=== PATIENT | male | born 1985 | race Caucasian/White ===

== ENCOUNTER 2019-12-03 22:50 | Emergency (ER) | payer SELFPAY ==
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
--- NOTE | 2019-12-03 22:53 | XR_ITS ---
WS: [id number] CHEST XRAY TECHNIQUE: Portable chest. CLINICAL INFORMATION: cough COMPARISON: None. FINDINGS: Heart: Normal cardiac silhouette. Lungs: No acute pulmonary infiltrates. No focal pneumonia. No pleural fluid. Bones: Right healed mid clavicular fracture with callus formation. XR/XR chest 1V portable [id number] IMPRESSION: 1. No acute pulmonary infiltrates. 2. Healed right midclavicular fracture with callus formation.
[2019-12-03 23:00] VITALS: BP 162/111; PULSE 71; RESP 18; TEMP 36.9; O2SAT 100; BMI 20.9
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
[2019-12-03 23:17] LABS: Basophils # 0.1 10^3/uL (0.0-0.1); Basophils % 0.4 %; Eosinophils # 0.2 10^3/uL (0.0-0.8); Eosinophils % 1.5 %; Hematocrit 39.5 % (42.0-52.0); Hemoglobin 12.9 g/dL (11.7-16.6); Lymphocytes # 2.2 10^3/uL (0.8-4.8); Mean Corpuscular HGB Conc 32.7 g/dL (30.0-36.0); Mean Corpuscular Hemoglobin 32.1 pg (28.0-34.0); Mean Corpuscular Volume 98.3 fL (80-94); Mean Platelet Volume 8.9 fL (7.4-10.4); Monocytes # 0.7 10^3/uL (0.2-0.9); Monocytes % 4.9 %; Neutrophils # 10.4 10^3/uL (1.8-7.7); Neutrophils % 76.4 %; Nucleated Red Blood Cells % 0 %; Platelet Count 263 10^3/cmm (130-400); Red Blood Count 4.02 10^6/uL (4.1-5.3); Red Cell Distribution Width 11.8 % (12.1-15.1); White Blood Count 13.6 10^3/uL (4.0-10.0)
[2019-12-03 23:29] LABS: Alanine Aminotransferase 35 U/L (0-41); Alkaline Phosphatase 91 IU/L (40-130); Aspartate Amino Transferase 32 U/L (0-40); Blood Urea Nitrogen 22 mg/dL (6-20); Calcium 8.7 mg/dL (8.5-10.5); Carbon Dioxide 26 mmol/L (22-29); Chloride 104 mmol/L (98-107); Globulin 2.2 g/dL (1.3-4.6); Glomerular Filtration Rate 86.6 mL/min (90-130); Glucose 107 mg/dL (65-115); Osmolality Calculated 285 mOsm/kg (285-295); Sodium 139 mmol/L (136-145); Total Bilirubin 0.2 mg/dL (0.15-1.2); Total Protein 6.2 g/dL (6.6-8.7)
[2019-12-03] MEDS: ampicillin-sulbactam 3 GM in sodium chloride 0.9% (plus) 50 ML IV (23:30)
[2019-12-03 23:33] VITALS: RESP 20
[2019-12-03] MEDS: morphine 4 mg/mL SDV 1 mL IVP (23:33)
[2019-12-03] MEDS: ondansetron 2 mg/ML SDV 2 mL 4 MG IVP (23:35)
[2019-12-04 00:06] VITALS: BP 166/107; PULSE 67; RESP 20; O2SAT 99
[2019-12-04 00:25] VITALS: RESP 17
[2019-12-04] MEDS: HYDROmorphone 1 mg/mL INJ 1 mL 0.5 MG IVP (00:25)
[2019-12-04 00:26] VITALS: BP 154/109; PULSE 86; RESP 18; O2SAT 99
== END 2019-12-04 00:29 | disposition short-term general hospital (02) ==
PROVIDERS: Emergency Provider Emergency Medicine; PCP Nurse Practitioner Family
DX: S01.21XA Laceration without foreign body of nose, initial encounter (principal); F17.210 Nicotine dependence, cigarettes, uncomplicated; V19.9XXA Pedal cyclist (driver) (passenger) injured in unspecified traffic accident, initial encounter
CPT/HCPCS: 12345; 70450; 70486; 71045; 72125; 72170; 80053; 85025; 96365; 96375; 99282; 99285; A9270; J0295; J1170; J2270; J2405